=== PATIENT | male | born 1950 | race Caucasian/White ===

== ENCOUNTER → 2017-06-25 | Outpatient (CLI) | payer MEDICARE, OTHER ==
[~2017-06-25] MED LIST: ADVAIR 250/5028 PUFF IN; ATROVENT INH; 114 GM IN; FUROSEMIDE40 MG PO; LAXATIVE PO; LIDODERM 5% PA1 EACH TD; MULTIVITAMIN1 TA1 PO; OXYCODONE15 MG PO; OXYCONTIN 40MG40 MG PO; PERCOCET 5/3251 EACH PO; PREVACID 30MG C30 M1 PO; PRISTIQ100 MG PO; PROVENTIL0.09 MG/AC IH; SINGULAIR 10 MG10 MG PO; STOOL SOFTENER PO
--- NOTE | 2017-06-27 10:41 | RADIOLOGY REPORT PS360 ---
MRI-L-SPINE W/O, MRI-3D RENDERING/MYELOGRAM HISTORY: Left-sided low back pain with numbness. Numbness in right foot , LUMBAGO ORDERING PHYSICIAN: Vinayak Mirza MD PATIENT AGE: 67 years COMPARISON: None TECHNIQUE: Standard multiplanar multiecho sequences are performed without contrast. 3-D MIP and myelographic images are also rendered and reviewed FINDINGS: There is normal alignment. The spinal cord ends at the L1-L2 level. T11-T12: Mild degenerative disc disease. T12-L1: Mild disc desiccation. L1-L2: Minimal anterior osteophyte. L2-L3: Minimal anterior osteophytes and minimal bulging disc. Minimal retrolisthesis of L2 of 2 mm. L3-L4: Minimal bulging disc slightly eccentric toward the right with minimal bilateral lateral recess and foraminal narrowing. L4-5: Facet and ligamentum flavum hypertrophy with mild bilateral lateral recess and foraminal narrowing with minimal bulging disc. L5-S1: Moderate facet hypertrophic change with minimal bulging disc with moderate bilateral foraminal narrowing. No fracture or dislocation. No extruded herniated disc or canal stenosis. Incidental note made of 3.5 cm right renal cyst. IMPRESSION: 1. Lumbar spondylosis as described above with mild degenerative disc disease with bulging discs, disc desiccation along with facet and ligamentum hypertrophy. Please see above for detailed description at each level. 2. Mild bilateral lateral recess and foraminal narrowing at L3-L4 and L4-5 with moderate bilateral foraminal narrowing at L5-S1 3. No disc herniation or canal stenosis. IMPRESSION:
--- NOTE | 2017-06-27 11:04 | RADIOLOGY REPORT PS360 ---
MRI-C-SPINE W/O HISTORY: NECK PAIN, left-sided neck pain with bilateral hand numbness and headache with stiff neck ORDERING PHYSICIAN: Vinayak Mirza MD PATIENT AGE: 67 years COMPARISON: 10/31/2012 TECHNIQUE: Standard multiplanar multiecho sequences are performed without contrast. 3-D MIP and myelographic images are also rendered and reviewed FINDINGS: The craniocervical junction has an unremarkable appearance. There is normal alignment. There is mild exaggeration of the lower cervical lordosis. C2-C3: Bulging disc with small focal central disc protrusion abutting the cord but without cord displacement or impingement. Borderline narrowing of the canal is 12 mm. The protruding disc may be very slightly more prominent than when compared to previous exam. C3-C4: Degenerative disc disease with bulging disc and minimal endplate osteophytes with mild bilateral foraminal narrowing slightly more prominent on the left compared to the right C4-C5: Mild degenerative disc disease with prominent anterior osteophytes. C5-C6: Moderate to severe degenerative disc disease with broad-based disc osteophyte complex with disc bulge slightly eccentric toward the right. There is resultant canal stenosis of 9 mm and minimal impingement upon the central and right aspect of the cord with moderate bilateral lateral recess narrowing and bilateral foraminal narrowing. C6-C7: Degenerative disc disease with broad-based bulging disc/disc osteophyte complex with severe right-sided foraminal narrowing. Mild central canal stenosis C7-T1 and T1-T2 unremarkable. No extruded herniated disc is evident. IMPRESSION: 1. Cervical spondylosis as detailed above. Please see above for detailed description at each level. Multilevel bulging discs/disc osteophyte complex with lateral recess and foraminal narrowing as detailed above. 2. Small central disc protrusion at C2-C3. 3. Canal stenosis at C5-C6 and C6-C7 with moderate bilateral lateral recess and foraminal narrowing at C5-6 and severe right-sided foraminal narrowing at C6-C7. The foraminal narrowing on the right at C6-C7 appear somewhat worse. IMPRESSION:
== END ==
LOC: RAD 12:56
DX: M25.512 Pain in left shoulder (principal); M54.2 Cervicalgia; M54.41 Lumbago with sciatica, right side

== ENCOUNTER 2017-07-30 07:54 | Day surgery (SDC) | payer MEDICARE, OTHER ==
[~2017-07-30] VITALS: Ht 177.8 cm; Wt 103.0 kg
[~2017-07-30 07:54] MED LIST changes: +BISAC-EVAC10 MG PO; +BREO ELLIPTA1 POW IH; +DEPO-TESTOS200 MG/M2 IM; +DOCUSATE CALCI240 MG PO; +IBUPROFEN400 MG PO; +IMITREX100 MG PO; +IPRATROPIUM BROM3 M1 IH; +MEN'S MULTI-VI1 EACH PO; +OXYCODONE 5MG TA5 MG PO; +PROAIR HFA0.09 MG/AC IH
[2017-07-30 08:05] VITALS: BP 118/74
[2017-07-30 08:23] VITALS: BP 118/74
[2017-07-30 08:26] VITALS: BP 144/79
--- NOTE | 2017-07-30 08:33 | Procedure Note ---
Procedure detail Date of procedure: 07/30/17 Anesthesiologist: Hung Regan Complications: None Pre-procedure diagnosis: Degenerative disease lumbar spine multiple levels. Multilevel facet arthropathy. Lumbar spondylosis. Post-procedure diagnosis: Same. Indications for procedure: Very pleasant 67-year-old white male the presents to our procedure clinic today for medial branch block L3-4, L4-5, L5-S1 bilateral. Patient complains of low back pain in flexion, extension, LEFT and RIGHT rotation. Patient's lumbar MRI reveals degenerative disc disease lumbar spine with levels. Multilevel facet arthropathy. Procedure detail: Informed consent was obtained and the risk and benefits of the procedure was explained to the patient. Patient was taken to the procedure room where noninvasive monitors were placed, including noninvasive blood pressure cuff as well as pulse oximeter. The area over the lumbar spine was cleansed using chlorhexidine as a cleansing solution. I anesthetized the skin and subcutaneous tissues with 1% Lidocaine. I placed 22-gauge spinal needles into the facet joint / medial branches of [L3-L4, L4-L5, and L5-S1] bilaterally. Needle placement was confirmed with fluoroscopy. After confirmation of needle placement, each site was injected with 1 mL of 1% lidocaine and 0.25 % Marcaine and 10 mg of Depo- Medrol. A total of 80 mg of depo medrol was used for bilateral medial branch blocks of [L3-L4, L4-L5, and L5-S1] bilaterally. Patient tolerated the procedure without difficulty. There were no complications. Plan and disposition: Patient was evaluated 10 minutes post procedure. He reports 90 percent improvement in terms of his low back pain in flexion, extension, LEFT and RIGHT rotation. at [id number]
[2017-07-30 08:38] VITALS: BP 111/76
== END 2017-07-30 08:40 | disposition home or self-care (01) ==
LOC: PM 07:54
PROC: 3E0T33Z Introduction of Anti-inflammatory into Peripheral Nerves and Plexi, Percutaneous Approach (ICD-10-PCS; principal; 2017-07-30)
PROC: 3E0T3BZ Introduction of Anesthetic Agent into Peripheral Nerves and Plexi, Percutaneous Approach (ICD-10-PCS; 2017-07-30)
PROC: BR161ZZ Fluoroscopy of Lumbar Facet Joint(s) using Low Osmolar Contrast (ICD-10-PCS; 2017-07-30)
DX: M51.36 Other intervertebral disc degeneration, lumbar region (principal); M54.00 Panniculitis affecting regions of neck and back, site unspecified; M47.896 Other spondylosis, lumbar region
CPT/HCPCS: J1040